=== PATIENT | female | born 1955 | race Caucasian/White ===

== ENCOUNTER 2018-02-22 09:31 | Inpatient (IN) | payer BC ==
[~2018-02-22] VITALS: Ht 160 cm; Wt 99.5 kg
[2018-02-27] MEDS ORDERED: COREG 25MG25 MG/TAB PO (09:47)
[2018-02-27] MEDS ORDERED: CALTRATE 600 +1 TAB PO (09:47)
[2018-02-27] MEDS ORDERED: ALDACTONE50 MG PO (09:48)
[2018-02-27] MEDS ORDERED: ENTRESTO 24 MG1 EACH PO (09:48)
[2018-02-27] MEDS ORDERED: IRON 27 MG PO (09:49)
[2018-02-27 09:50] VITALS: BP 107/64; PULSE 73; TEMP 97.9
[2018-02-27 10:32] LABS: BASO % 0.7 % (0.0-2.0); EOS # 0.4 (0.0-0.7); EOS % 6.5 % (0-4.0); GRAN # 3.5 (1.4-6.5); GRAN % 57.9 % (42.2-75.2); LYMPH # 1.7 (1.2-3.4); MEAN CELL VOLUME 96 fl (80.0-100.0); MEAN CORPUSCULAR HEMOGLOBIN 30 pg (27.0-31.0); MEAN CORPUSCULAR HGB CONC 32 g/dl (33.0-37.0); MEAN PLATELET VOLUME 9.9 fl (7.4-10.4); MONO # 0.4 (0.1-0.6); MONO % 6.7 % (1.7-9.3); PLATELET COUNT 259 K/mm3 (130-400); RED BLOOD COUNT 3.63 M/mm3 (4.10-5.30); REDCELL DISTRIBUTION WIDTH-CV 13.6 % (11.5-14.5)
[2018-02-27 10:35] LABS: PROTHROMBIN TIME 11.5 SECONDS (9.7-12.8)
[2018-02-27 10:39] LABS: HEMATOCRIT 34.8 % (37.0-47.0)
[2018-02-27 10:44] LABS: BILIRUBIN,TOTAL 0.3 mg/dL (0.0-1.0); CALCIUM 10.3 mg/dL (8.4-10.2); CREATININE, serum 0.92 mg/dL (0.52-1.25); MAGNESIUM 1.7 mg/dL (1.6-2.3); POTASSIUM 4.4 mmol/L (3.4-5.0); TOTAL PROTEIN 6.7 gm/dL (6.4-8.2)
[2018-02-27 16:55] VITALS: BP 102/60; PULSE 43; TEMP 997.4
[2018-02-27 23:23] VITALS: BP 136/72; PULSE 101; TEMP 97.6
[2018-02-28 04:49] VITALS: BP 100/55; PULSE 74; TEMP 98.4
[2018-02-28 07:05] VITALS: BP 94/61; PULSE 66; TEMP 98.8
[2018-02-28 08:20] LABS: BASO % 0.6 % (0.0-2.0); EOS # 0.4 (0.0-0.7); EOS % 5.2 % (0-4.0); GRAN % 55.2 % (42.2-75.2); HEMOGLOBIN 10.8 g/dl (12.5-16.0); LYMPH # 2.3 (1.2-3.4); MEAN CELL VOLUME 96 fl (80.0-100.0); MEAN CORPUSCULAR HEMOGLOBIN 30 pg (27.0-31.0); MEAN CORPUSCULAR HGB CONC 32 g/dl (33.0-37.0); MEAN PLATELET VOLUME 10.3 fl (7.4-10.4); MONO # 0.6 (0.1-0.6); MONO % 7.7 % (1.7-9.3); PLATELET COUNT 268 K/mm3 (130-400); RED BLOOD COUNT 3.55 M/mm3 (4.10-5.30); REDCELL DISTRIBUTION WIDTH-CV 13.5 % (11.5-14.5)
[2018-02-28 08:22] LABS: HEMATOCRIT 33.9 % (37.0-47.0)
[2018-02-28 08:28] LABS: CALCIUM 9.6 mg/dL (8.4-10.2); CREATININE, serum 0.95 mg/dL (0.52-1.25); MAGNESIUM 1.7 mg/dL (1.6-2.3); POTASSIUM 4.4 mmol/L (3.4-5.0)
[2018-02-28 12:25] VITALS: BP 90/55; PULSE 65; TEMP 98.1
[2018-02-28 15:46] VITALS: BP 89/48; BP 95/57; PULSE 66; TEMP 98.8
[2018-02-28 18:55] VITALS: BP 1025/58; BP 125/58; PULSE 86; TEMP 97.9
[2018-02-28 23:48] VITALS: BP 97/58; PULSE 80; TEMP 97.7
[2018-03-01 03:33] VITALS: BP 97/60; PULSE 81; TEMP 97.7
[2018-03-01 06:26] LABS: BASO % 0.5 % (0.0-2.0); EOS # 0.3 (0.0-0.7); EOS % 3.5 % (0-4.0); GRAN # 4.3 (1.4-6.5); GRAN % 54.7 % (42.2-75.2); LYMPH # 2.4 (1.2-3.4); LYMPH % 30.6 % (20.0-51.0); MEAN CELL VOLUME 94 fl (80.0-100.0); MEAN CORPUSCULAR HEMOGLOBIN 30 pg (27.0-31.0); MEAN CORPUSCULAR HGB CONC 32 g/dl (33.0-37.0); MEAN PLATELET VOLUME 10.3 fl (7.4-10.4); MONO # 0.8 (0.1-0.6); MONO % 10.4 % (1.7-9.3); PLATELET COUNT 254 K/mm3 (130-400); RED BLOOD COUNT 3.68 M/mm3 (4.10-5.30); REDCELL DISTRIBUTION WIDTH-CV 13.3 % (11.5-14.5)
[2018-03-01 06:27] LABS: HEMATOCRIT 34.6 % (37.0-47.0)
[2018-03-01 06:37] LABS: CALCIUM 9.8 mg/dL (8.4-10.2); CREATININE, serum 0.95 mg/dL (0.52-1.25); MAGNESIUM 1.6 mg/dL (1.6-2.3); POTASSIUM 4.3 mmol/L (3.4-5.0)
[2018-03-01 07:12] VITALS: BP 103/59; PULSE 70; TEMP 98.1
[2018-03-01] MEDS ORDERED: BETAPACE 80MG80 MG PO (10:11)
== END 2018-03-01 11:39 | disposition home or self-care (01) | DRG 309 ==
LOC: MEDICAL 02-27 08:58
PROVIDERS: Internal Medicine Cardiovascular Disease
DX: I47.2 Ventricular tachycardia (principal); I50.22 Chronic systolic (congestive) heart failure; I42.9 Cardiomyopathy, unspecified; I48.91 Unspecified atrial fibrillation; Z95.810 Presence of automatic (implantable) cardiac defibrillator; D64.9 Anemia, unspecified

== ENCOUNTER 2019-01-23 18:40 | Emergency (ER) | payer BC ==
[~2019-01-23] VITALS: Ht 160 cm; Wt 103.2 kg
[~2019-01-23 18:40] MED LIST changes: -CRUTCHES MC; -NORCO 325 MG-51 TAB PO; -TYLENOL 500MG500 MG PO; -WALKER MC
[2019-01-23 18:50] VITALS: TEMP 97.6
[2019-01-23] MEDS ORDERED: TYLENOL 500MG500 MG PO (19:08)
[2019-01-23 21:51] LABS: BASO % 0.4 % (0.0-2.0); EOS # 0.4 (0.0-0.7); EOS % 4.3 % (0-4.0); GRAN # 7.2 (1.4-6.5); GRAN % 69.8 % (42.2-75.2); HEMOGLOBIN 10.9 g/dl (12.5-16.0); LYMPH % 19.6 % (20.0-51.0); MEAN CELL VOLUME 98 fl (80.0-100.0); MEAN CORPUSCULAR HEMOGLOBIN 32 pg (27.0-31.0); MEAN CORPUSCULAR HGB CONC 32 g/dl (33.0-37.0); MEAN PLATELET VOLUME 10.2 fl (7.4-10.4); MONO # 0.6 (0.1-0.6); MONO % 5.4 % (1.7-9.3); PLATELET COUNT 298 K/mm3 (130-400); RED BLOOD COUNT 3.45 M/mm3 (4.10-5.30); REDCELL DISTRIBUTION WIDTH-CV 14.9 % (11.5-14.5)
[2019-01-23 21:54] LABS: HEMATOCRIT 33.7 % (37.0-47.0)
[2019-01-23 22:05] LABS: ALBUMIN 4.3 gm/dL (3.5-5.0); BILIRUBIN,TOTAL 0.3 mg/dL (0.0-1.0); CREATININE, serum 1.23 (0.52-1.25); TOTAL PROTEIN 7.3 gm/dL (6.4-8.2)
[2019-01-23 22:23] LABS: TROPONIN-I 0.014 ng/mL (0.000-0.035)
[2019-01-23] MEDS ORDERED: NORCO 325 MG-51 TAB PO (22:47)
[2019-01-23] MEDS ORDERED: CRUTCHES MC ×2 (22:50)
[2019-01-23] MEDS ORDERED: WALKER MC (22:57)
[2019-01-23 23:04] VITALS: BP 101/63; PULSE 81
== END 2019-01-23 23:04 | disposition home or self-care (01) ==
LOC: COL.ER 18:40
PROVIDERS: Emergency Medicine
DX: S72.114A Nondisplaced fracture of greater trochanter of right femur, initial encounter for closed fracture (principal); I50.9 Heart failure, unspecified; W19.XXXA Unspecified fall, initial encounter; Y92.009 Unspecified place in unspecified non-institutional (private) residence as the place of occurrence of the external cause

== ENCOUNTER → 2019-01-23 | Outpatient (CLI) | payer BC ==
[~2019-01-23] MED LIST: ALDACTONE50 MG PO; BETAPACE 80MG80 MG PO; CALTRATE 600 +1 TAB PO; COREG 25MG25 MG/TAB PO; CRUTCHES MC; ENTRESTO 24 MG1 EACH PO; IRON 27 MG PO; NORCO 325 MG-51 TAB PO; TYLENOL 500MG500 MG PO; WALKER MC
== END ==
LOC: MC.RAD 14:38
DX: N63.21 Unspecified lump in the left breast, upper outer quadrant (principal)
CPT/HCPCS: G0279

== ENCOUNTER → 2019-02-04 | Outpatient (CLI) | payer BC ==
[~2019-02-04] MED LIST changes: +CRUTCHES MC; +NORCO 325 MG-51 TAB PO; +TYLENOL 500MG500 MG PO; +WALKER MC
== END ==
LOC: MC.RAD 10:00
DX: N63.20 Unspecified lump in the left breast, unspecified quadrant (principal)

== ENCOUNTER → 2019-02-28 | Outpatient (CLI) | payer BC ==
[2019-02-28] VITALS (17 sets, daily range): BP systolic 83–1107; BP diastolic 46–79; PULSE 62–76
[~2019-02-28] VITALS: Ht 160 cm; Wt 103.1 kg
[~2019-02-28] MED LIST changes: +ENTRESTO 49 MG1 EACH PO
== END ==
LOC: COL.RAD 13:00
DX: C50.412 Malignant neoplasm of upper-outer quadrant of left female breast (principal); C79.51 Secondary malignant neoplasm of bone
CPT/HCPCS: J2250; J3010

== ENCOUNTER 2019-04-01 06:57 | Day surgery (SDC) | payer BC ==
[~2019-04-01] VITALS: Ht 160 cm; Wt 102.0 kg
[2019-04-01 07:24] VITALS: BP 95/60; PULSE 69; TEMP 97.4
[2019-04-01] MEDS ORDERED: NORCO 325 MG-51 TAB PO (10:13)
[2019-04-01 10:17] VITALS: BP 101/78; PULSE 82; TEMP 96.8
--- NOTE | 2019-04-01 10:17 | NUR ---
Patient arrives to [facility] [place] [facility] post-procedure for recovery. She is in the bed, accompanied by ADAMS Rosario and RN Irma Oleary. Bedside report is received. She is lying in bed, alert and oriented. She complains that she is cold. Monitoring applied - VSS on room air. Temporal temp reads 96.8 - given warm blankets to her comfort. She denies any pain or nausea. She has a tegaderm covering her incision on the right chest and the accessed [id number]. The port is to remain accessed for lab draws today and chemotherapy tomorrow, per Dr. Vang. The tegaderm has a scant amount of bloody drainage on it close to the incision area. Call light in reach. Her is running any errand at this time.
[2019-04-01 10:30] VITALS: BP 96/50; PULSE 64; TEMP 97.5
--- NOTE | 2019-04-01 10:30 | NUR ---
Patient is sat up in bed. She is offered and receives a soda and a muffin to eat. She denies any pain, nausea, or need. Drainage on tegaderm remains unchanged.
[2019-04-01 10:45] VITALS: BP 106/63; PULSE 64
--- NOTE | 2019-04-01 10:45 | NUR ---
Patient is resting comfortably in her room. Her family arrives to take her home.
[2019-04-01 11:00] VITALS: BP 108/57; PULSE 68
--- NOTE | 2019-04-01 11:20 | NUR ---
Patient has met discharge criteria. Discharge instructions are discussed. She denies any questions and verbalizes understanding. PIV removed with catheter intact and hemostasis achieved. She changes to her clothing independently. Escorted to the exit via wheelchair by staff. Discharged to home with ride at 1120.
== END 2019-04-01 11:20 | disposition home or self-care (01) ==
LOC: SDCO 06:57
DX: C50.412 Malignant neoplasm of upper-outer quadrant of left female breast (principal); Z79.51 Long term (current) use of inhaled steroids; J30.1 Allergic rhinitis due to pollen; I50.9 Heart failure, unspecified; M81.0 Age-related osteoporosis without current pathological fracture; Z83.3 Family history of diabetes mellitus; Z71.1 Person with feared health complaint in whom no diagnosis is made; Z88.0 Allergy status to penicillin; Z80.9 Family history of malignant neoplasm, unspecified; Z82.49 Family history of ischemic heart disease and other diseases of the circulatory system
CPT/HCPCS: C1788; J0690; J1644; J2704; J7120

== ENCOUNTER 2019-05-13 05:34 | Day surgery (SDC) | payer BC ==
[~2019-05-13] VITALS: Ht 160 cm; Wt 96.9 kg
[2019-05-13 06:10] VITALS: BP 95/54; PULSE 74; TEMP 97.3
[2019-05-13] MEDS ORDERED: TYLENOL 500MG500 MG PO (06:17)
[2019-05-13] MEDS ORDERED: TUMS500 MG PO (06:18)
--- NOTE | 2019-05-13 06:20 | NUR ---
TO RM AT 0546- CALL LIGHT IN REACH DAUGHTER AT BEDSIDE
[2019-05-13 08:25] VITALS: BP 86/52; PULSE 78; TEMP 97.4
--- NOTE | 2019-05-13 08:25 | NUR ---
TO PER CART FROM OR. ALERT ORIENTED X 3, TALKING TO STAFF AND DAUGHTER. PORT ACCESSED FOR CHEMO TX IN AM. DRESSING OVER SITE WITHOUT DRAINAGE.
[2019-05-13 08:30] VITALS: BP 81/53; PULSE 73
[2019-05-13 08:45] VITALS: BP 99/61; PULSE 65
--- NOTE | 2019-05-13 08:45 | NUR ---
RECEIVED WATER AND MUFFIN
[2019-05-13 09:00] VITALS: BP 94/53; PULSE 56
--- NOTE | 2019-05-13 09:00 | NUR ---
ATE 50% OF MUFFIN AND STATED THAT IS ALL SHE CAN EAT. C/O BEING COLD AND RECEIVED WARM BLANKET.
--- NOTE | 2019-05-13 09:30 | NUR ---
RECEIVED DISCHARGE INSTRUCTIONS AND VERBALIZED UNDERSTANDING. DISCONTINUED IV AND INT- CATHETER INTACT DAUGHTER ASSISTING PATIENT DRESSED.
--- NOTE | 2019-05-13 09:52 | NUR ---
DISCHARGED PER WC BY NURSING STAFF TO PRIVATE CAR IN CARE OF DAUGHTER-PIOTR
== END 2019-05-13 09:55 | disposition home or self-care (01) ==
LOC: SDCO 05:34
DX: T82.599A Other mechanical complication of unspecified cardiac and vascular devices and implants, initial encounter (principal); I50.9 Heart failure, unspecified; M81.0 Age-related osteoporosis without current pathological fracture; C50.412 Malignant neoplasm of upper-outer quadrant of left female breast; Z79.51 Long term (current) use of inhaled steroids; Z88.0 Allergy status to penicillin; I42.9 Cardiomyopathy, unspecified
CPT/HCPCS: J2704; J3010; J7120

== ENCOUNTER 2019-06-10 16:36 | Inpatient (IN) | payer BC ==
[~2019-06-10] VITALS: Ht 160 cm; Wt 95.8 kg
[~2019-06-10 16:36] MED LIST changes: +TUMS500 MG PO
[2019-06-10 17:24] LABS: GRAN # 2.2 (1.4-6.5); GRAN % 52.9 % (42.2-75.2); LYMPH # 1.6 (1.2-3.4); LYMPH % 38.2 % (20.0-51.0); MEAN CELL VOLUME 99 fl (80.0-100.0); MEAN CORPUSCULAR HGB CONC 33 g/dl (33.0-37.0); MEAN PLATELET VOLUME 10.2 fl (7.4-10.4); MONO # 0.3 (0.1-0.6); MONO % 6.4 % (1.7-9.3); PLATELET COUNT 319 K/mm3 (130-400); RED BLOOD COUNT 2.99 M/mm3 (4.10-5.30); REDCELL DISTRIBUTION WIDTH-CV 17.2 % (11.5-14.5)
[2019-06-10 17:25] LABS: HEMATOCRIT 29.5 % (37.0-47.0); HEMOGLOBIN 9.6 g/dl (12.5-16.0); MEAN CORPUSCULAR HEMOGLOBIN 32 pg (27.0-31.0)
[2019-06-10 17:36] LABS: ALANINE AMINOTRANSFERASE 10 U/L (4-34); ALBUMIN 4.2 gm/dL (3.5-5.0); ALKALINE PHOSPHATASE 102 U/L (50-136); ANION GAP 10 mmol/L (7-16); AST,SGOT 25 U/L (15-37); BILIRUBIN,TOTAL 0.4 mg/dL (0.0-1.0); BLOOD UREA NITROGEN 63 mg/dL (7-17); CALCIUM 9.1 mg/dL (8.4-10.2); CARBON DIOXIDE 15 mmol/L (22-30); CHLORIDE 109 mmol/L (98-107); CREATININE, serum 4.38 (0.52-1.25); GLUCOSE 95 mg/dL (74-106); POTASSIUM 4.2 mmol/L (3.4-5.0); SODIUM 135 mmol/L (137-145); TOTAL PROTEIN 6.8 gm/dL (6.4-8.2)
[2019-06-10 17:52] LABS: C-REACTIVE PROTEIN < 0.5 mg/dL (0.0-0.9)
[2019-06-10 19:23] LABS: MAGNESIUM 1.5 mg/dL (1.6-2.3); PHOSPHOROUS 4.4 mg/dL (2.5-4.5)
[2019-06-10 19:57] VITALS: BP 104/56; PULSE 68; TEMP 98.1
[2019-06-10 20:44] LABS: COLLECTION METHOD CLEAN CATCH
[2019-06-10 20:55] LABS: PH 5 (5-8); SQUAMOUS EPITHELIAL 0-2 /hpf; URINE APPEARANCE Hazy; URINE BACTERIA Occasional /hpf; URINE BILIRUBIN Negative (NEGATIVE); URINE BLOOD 1+ (NEGATIVE); URINE COLOR Yellow; URINE GLUCOSE Negative (NEGATIVE); URINE KETONE Negative (NEGATIVE); URINE LEUKOCYTE ESTERASE 2+ (NEGATIVE); URINE NITRATE Negative (NEGATIVE); URINE PROTEIN(semi-quant) 1+ (NEGATIVE); URINE UROBILINOGEN Negative (NEGATIVE)
[2019-06-11] VITALS (16 sets, daily range): BP systolic 71–99; BP diastolic 35–55; PULSE 52–72; TEMP 97–98.1
--- NOTE | 2019-06-11 02:42 | NUR ---
Patient to the floor via bed. UA obtained and sent to lab. IVF started. Magnesium replaced per orders. Patient denies pain. States nausea is a lot better since getting fluids in ED. Port to right upper chest accessed. Stand-by assist to bathroom. Remains hypotensive. Melia Nielsen APRN, aware and ordered hourly vitals checks. Patient states she is feeling much better and her dizziness has passed. Ambulates with steady gait. Heparin for VTE. 5 page completed. Med rec completed. Will continue to monitor patient.
[2019-06-11 06:54] LABS: BASO % 0.3 % (0.0-2.0); GRAN # 2.4 (1.4-6.5); GRAN % 62.5 % (42.2-75.2); LYMPH # 1.3 (1.2-3.4); LYMPH % 33.2 % (20.0-51.0); MEAN CELL VOLUME 101 fl (80.0-100.0); MEAN CORPUSCULAR HGB CONC 33 g/dl (33.0-37.0); MEAN PLATELET VOLUME 10.2 fl (7.4-10.4); MONO # 0.1 (0.1-0.6); MONO % 3.5 % (1.7-9.3); PLATELET COUNT 261 K/mm3 (130-400); RED BLOOD COUNT 2.64 M/mm3 (4.10-5.30); REDCELL DISTRIBUTION WIDTH-CV 17.2 % (11.5-14.5)
[2019-06-11 07:09] LABS: ALBUMIN 3.6 gm/dL (3.5-5.0); BILIRUBIN,TOTAL 0.3 mg/dL (0.0-1.0); CREATININE, serum 2.86 (0.52-1.25); MAGNESIUM 1.8 mg/dL (1.6-2.3); POTASSIUM 4.2 mmol/L (3.4-5.0)
[2019-06-11 07:23] LABS: HEMATOCRIT 26.6 % (37.0-47.0); HEMOGLOBIN 8.8 g/dl (12.5-16.0); MEAN CORPUSCULAR HEMOGLOBIN 33 pg (27.0-31.0)
--- NOTE | 2019-06-11 15:44 | NUR ---
TREVIN met with the patient to complete initial intake. The patient lives in [place] with her , Axel. The patient denies DME usage and is independent with ADLs. The patient's PCP is Dr. Salamanca and patient receives medications from [facility]. The patient does not have advanced directives in the EMR but was interested in a DPOA-HC form. Form provided. The patient plans to return home at discharge with Axel providing transportation. Will continue to monitor.
--- NOTE | 2019-06-11 18:08 | NUR ---
Patient currently resting in bedside recliner eating dinner. Patient tolerated clear liquids well all shift, no reports of nausea and no episodes of emesis. Patient has denied pain today. Blood pressures remain low but stable. Patient denies needs at this time, call light within reach.
--- NOTE | 2019-06-11 23:46 | NUR ---
PATIENT SLEEPING, DOES NOT AWAKEN WHEN ROOM ENTERED BY STAFF. OBSERVED BREATHING NONLABORED AND EVEN. PATIENT CONTINUES ON TELE.
--- NOTE | 2019-06-12 00:30 | NUR ---
TELE CALLED, REPORTED OBSERVING HEART RATE TO 40'S WHILE PATIENT SLEEPS, SETTING OFF ALARMS, OBSERVED PATIENT SLEEPING WITH NONLABORED/EVEN BREATHING.
--- NOTE | 2019-06-12 02:41 | NUR ---
TELE CALLED, PATIENT HAS HEART DROP TO 40'S WITH SLEEP, DONG PATEL CALLED BY CHARGE NURSE, LILI, TO GET ORDER FOR TELE PARAMETERS CHANGE.
--- NOTE | 2019-06-12 02:53 | NUR ---
PATIENT SLEEPING, DOES NOT AWAKEN WHEN DOOR TO ROOM IS OPENED BY STAFF, BREATHING NONLABORED AND EVEN. TELE CONTINUES.
--- NOTE | 2019-06-12 03:10 | NUR ---
PER TELE, REPORTING ABNORMAL RHYTHM THAT IS STILL BEING "LOOKED AT".
[2019-06-12 03:14] VITALS: BP 84/56; PULSE 62; TEMP 97.5
--- NOTE | 2019-06-12 03:19 | NUR ---
SEE Kopjra FOR VS TAKEN, PATIENT AWAKENS EASILY WITH NO C/O INITIALLY OF CHEST PAIN OR SHORTNESS OF BREATH. DENIES ANY NEEDS OR CONCERNS.
--- NOTE | 2019-06-12 03:23 | NUR ---
CALLED, TELE, SPOKE WITH NAKUL/MAINSPRING WINDER AND OILER, DETERMINED ABN RHYTHM/WITH ICU CATEGORY SPECIALIST PATIENT HAD 2 SEPARATE BEATS OF P.A.T. WITH 1ST EPISODE OF 11 BEATS OF P.A.T. AND 2ND EPISODE OF 7 BEATS OF P.A.T. THAT CHANGED BACK TO PATIENT'S NORM RHYTHM IN THE 50'S. INFORMED TECH OF PATIENT'S VS TAKEN, WITH PATIENT DENYING CHEST PAIN/SHORTNESS OF BREATH.
[2019-06-12 06:40] LABS: BASO % 0.4 % (0.0-2.0); GRAN # 1.7 (1.4-6.5); GRAN % 35.3 % (42.2-75.2); LYMPH # 2.6 (1.2-3.4); LYMPH % 54.2 % (20.0-51.0); MEAN CELL VOLUME 100 fl (80.0-100.0); MEAN CORPUSCULAR HGB CONC 32 g/dl (33.0-37.0); MEAN PLATELET VOLUME 10.3 fl (7.4-10.4); MONO # 0.5 (0.1-0.6); MONO % 9.5 % (1.7-9.3); PLATELET COUNT 253 K/mm3 (130-400); RED BLOOD COUNT 2.57 M/mm3 (4.10-5.30); REDCELL DISTRIBUTION WIDTH-CV 17.5 % (11.5-14.5)
[2019-06-12 06:52] LABS: HEMATOCRIT 25.6 % (37.0-47.0); HEMOGLOBIN 8.2 g/dl (12.5-16.0); MEAN CORPUSCULAR HEMOGLOBIN 32 pg (27.0-31.0)
[2019-06-12 06:54] LABS: CREATININE, serum 1.7 (0.52-1.25); MAGNESIUM 1.7 mg/dL (1.6-2.3)
--- NOTE | 2019-06-12 07:20 | NUR ---
Patient resting in bed during change of shift report given to day shift nurseJanina and student nurse, Gama. Tele continues. Patient up in room independently.
[2019-06-12 08:28] VITALS: BP 102/55; PULSE 60; TEMP 97.6
--- NOTE | 2019-06-12 08:30 | NUR ---
PT A&O*3. VSS. HELD BETA ABEL DUE TO HEART RATE IN THE 50'S ON TELE. ALSO NOTED SOFT B/P. CONFIRMED HOLD WITH HOSPITALIST. PATIENT DENIES PAIN. ADMIT ON 06/09 SINCE REJI/HYPOTENSION. NO ABNORMAL FINDINGS ON HEAD TO ASSESSMENT. PT HAS CRUSTED LESION ON LEFT FOOT WITH NO DRESSING ON IT. PT EATING AND VOIDING INDEPENDENTLY. NO C/O N/V. ON IV ABX FOR UTI. PT HAS CENTRAL PORT ON RIGHT CHEST TO INT. PT IS SITTING ON CHAIR, CALL LIGHT WITHIN REACH.
--- NOTE | 2019-06-12 10:10 | NUR ---
HOSPITALIST CARE TEAM ROUNDING, SEE ORDERS.
[2019-06-12] MEDS ORDERED: PROTONIX 40MG T40 MG PO (10:16)
[2019-06-12] MEDS ORDERED: PACERONE400 MG PO (10:17)
--- NOTE | 2019-06-12 12:51 | NUR ---
First visit from the clinic business manager. No needs right now.
[2019-06-12 12:55] VITALS: BP 86/51; PULSE 53; TEMP 97.8
== END 2019-06-12 15:10 | disposition home or self-care (01) | DRG 683 ==
LOC: COL.ER 16:36 → SURG 18:12
PROVIDERS: Family Medicine; Nurse Practitioner Family; Physician Assistant; ADMIT Student in an Organized Health Care Education/Training Program
DX: N17.9 Acute kidney failure, unspecified (principal); I42.9 Cardiomyopathy, unspecified; I47.2 Ventricular tachycardia; C79.51 Secondary malignant neoplasm of bone; N39.0 Urinary tract infection, site not specified; C50.412 Malignant neoplasm of upper-outer quadrant of left female breast; I50.9 Heart failure, unspecified; I95.9 Hypotension, unspecified; Z66 Do not resuscitate; D64.9 Anemia, unspecified; K20.9 Esophagitis, unspecified; M81.0 Age-related osteoporosis without current pathological fracture; E83.42 Hypomagnesemia; R19.7 Diarrhea, unspecified; R53.81 Other malaise; E86.0 Dehydration; Z95.810 Presence of automatic (implantable) cardiac defibrillator; Z88.0 Allergy status to penicillin
CPT/HCPCS: 99223-AI; 99232-AI; 99239; A4216; C9113; J0696; J1644; J2405; J3475; J7030; J7120

== ENCOUNTER → 2019-09-04 | Outpatient (CLI) | payer BC ==
[~2019-09-04] MED LIST changes: +PACERONE400 MG PO; +PROTONIX 40MG T40 MG PO
== END ==
LOC: COL.RAD 09:51
DX: C50.412 Malignant neoplasm of upper-outer quadrant of left female breast (principal); C79.51 Secondary malignant neoplasm of bone; Z95.9 Presence of cardiac and vascular implant and graft, unspecified
CPT/HCPCS: A9503; Q9967

== ENCOUNTER → 2019-09-25 | Outpatient (CLI) | payer BC | LOC: COL.RAD 12:37 | DX: Q62.11 Congenital occlusion of ureteropelvic junction (principal) | CPT/HCPCS: A9562 ==

== ENCOUNTER 2019-10-31 07:40 | Day surgery (SDC) | payer BC ==
[~2019-10-31] VITALS: Ht 160 cm; Wt 88.6 kg
[2019-10-31] MEDS ORDERED: CORDARONE200 MG/TAB PO (08:02)
[2019-10-31] MEDS ORDERED: DEMADEX10 MG PO (08:05)
[2019-10-31] MEDS ORDERED: ZOFRAN8 MG PO (08:07)
[2019-10-31 09:00] VITALS: BP 83/53; PULSE 95; TEMP 98.2
[2019-10-31 11:14] VITALS: BP 90/52; PULSE 84; TEMP 97.3
--- NOTE | 2019-10-31 11:14 | NUR ---
Patient arrives back to SDC alert, denies nausea, reports slight cramping/discomfort feeling/urge to urinate. Patient monitor applied, vitals stable. Patient tolerating ice chips well. Daughter at bedside. Patient given crackers and soda.
[2019-10-31 11:30] VITALS: BP 87/47; PULSE 84
[2019-10-31 11:45] VITALS: BP 101/58; PULSE 85
--- NOTE | 2019-10-31 11:45 | NUR ---
Patient tolerates soda and crackers without any nausea. Reports bladder cramping, denies wanting any pain medication. Patient reports she is ready to go home. Vitals stable.
--- NOTE | 2019-10-31 12:00 | NUR ---
Dismissal instructions gone over with patient and patient's daughter. Both verbalize understanding and all questions answered.
--- NOTE | 2019-10-31 12:10 | NUR ---
Patient discharged to private vehicle at patient enterance via wheelchair without any complications. Patient and family leave thanking staff for services.
== END 2019-10-31 12:10 | disposition home or self-care (01) ==
LOC: SDCO 07:40
DX: N13.0 Hydronephrosis with ureteropelvic junction obstruction (principal); C50.919 Malignant neoplasm of unspecified site of unspecified female breast; C79.51 Secondary malignant neoplasm of bone; I50.9 Heart failure, unspecified; G89.29 Other chronic pain; F32.9 Major depressive disorder, single episode, unspecified; M81.0 Age-related osteoporosis without current pathological fracture; M19.90 Unspecified osteoarthritis, unspecified site; Z79.899 Other long term (current) drug therapy; Z88.0 Allergy status to penicillin; Z95.810 Presence of automatic (implantable) cardiac defibrillator; Z20.828 Contact with and (suspected) exposure to other viral communicable diseases
CPT/HCPCS: C1769; C2617; J0690; J1100; J2704; J3010; J7120; Q9967

== ENCOUNTER 2019-12-23 17:39 | Inpatient (IN) | payer BC, OTHER ==
[~2019-12-23] VITALS: Ht 160 cm; Wt 110.1 kg
[~2019-12-23 17:39] MED LIST changes: +ALDACTONE 25MG25 M1 PO; -ALDACTONE50 MG PO; +CORDARONE200 MG/TAB PO; +DEMADEX10 MG PO; +ZOFRAN8 MG PO
[2019-12-23 18:42] LABS: INR 1.1 (0.8-3.0); PROTHROMBIN TIME 11.8 SECONDS (9.7-12.8)
[2019-12-23 18:43] LABS: BASO % 0.8 % (0.0-2.0); EOS # 0.1 (0.0-0.7); EOS % 4.5 % (0-4.0); GRAN # 1.2 (1.4-6.5); GRAN % 50.7 % (42.2-75.2); LYMPH # 0.9 (1.2-3.4); MEAN CELL VOLUME 99 fl (80.0-100.0); MEAN CORPUSCULAR HGB CONC 33 g/dl (33.0-37.0); MEAN PLATELET VOLUME 9.5 fl (7.4-10.4); MONO # 0.2 (0.1-0.6); MONO % 6.6 % (1.7-9.3); PLATELET COUNT 340 K/mm3 (130-400); RED BLOOD COUNT 2.94 M/mm3 (4.10-5.30); REDCELL DISTRIBUTION WIDTH-CV 17.4 % (11.5-14.5)
[2019-12-23 18:44] LABS: HEMATOCRIT 29.1 % (37.0-47.0); HEMOGLOBIN 9.6 g/dl (12.5-16.0); MEAN CORPUSCULAR HEMOGLOBIN 33 pg (27.0-31.0)
[2019-12-23 18:45] LABS: ALANINE AMINOTRANSFERASE 12 U/L (4-34); ALBUMIN 4.3 gm/dL (3.5-5.0); ALKALINE PHOSPHATASE 113 U/L (50-136); ANION GAP 13 mmol/L (7-16); AST,SGOT 26 U/L (15-37); BILIRUBIN,TOTAL 0.5 mg/dL (0.0-1.0); BLOOD UREA NITROGEN 49 mg/dL (7-17); CALCIUM 9.3 mg/dL (8.4-10.2); CARBON DIOXIDE 17 mmol/L (22-30); CHLORIDE 104 mmol/L (98-107); CREATININE, serum 4.41 (0.52-1.25); GLUCOSE 84 mg/dL (74-106); POTASSIUM 3.9 mmol/L (3.4-5.0); SODIUM 134 mmol/L (137-145); TOTAL PROTEIN 6.8 gm/dL (6.4-8.2)
[2019-12-23 18:46] LABS: C-REACTIVE PROTEIN < 0.5 mg/dL (0.0-0.9)
[2019-12-23 18:54] LABS: TROPONIN-I 0.032 ng/mL (0.000-0.035)
[2019-12-23 21:58] VITALS: BP 86/58; PULSE 84; TEMP 97.4
--- NOTE | 2019-12-23 23:00 | NUR ---
Patient arrived to medical unit from ER at approximately 2130. Alert and oriented x 4, and able to make needs known. Reports pain all over, achy feeling. Peripheral INT to left AC. NS running at 125 ml/hr per orders. Has port to right chest, not accessed at this time. Unsure what size neele to use, talked to housekeeping assistant, and recommened to use peripheral for tonight and call MD office tomorrow to get size. Patient voiced understanding. Denies having SOB and dyspnea. LS CTA in upper lobes, diminished in lower. Respirations even and unlabored. HRR. Telemetry in place. Capillary refill less htan 3 seconds. Non-tenting skin turgor. BSAx4. Abdomen soft and non-tender. No edema. Bladder scanned with a result of approximately 75 ml. Patient states that she always feels like she has to pee, but only dribbles small amounts. Indwelling wylie catheter placed per orders. 100 ml cloudy yellow urine, sent UA to lab. Patient systolic BP continues to be in the 80s, which patient reports is her usual. Denies dizziness. Voices no questions, needs, or concerns at this time. Resting in bed with call light within reach.
[2019-12-23 23:11] LABS: COLLECTION METHOD CLEAN CATCH
[2019-12-23 23:32] LABS: AMORPHOUS CRYSTAL Present /uL; PH 5 (5-8); SQUAMOUS EPITHELIAL None Seen /hpf; URINE APPEARANCE Cloudy; URINE BACTERIA Rare /hpf; URINE BILIRUBIN Negative (NEGATIVE); URINE BLOOD 3+ (NEGATIVE); URINE COLOR Yellow; URINE GLUCOSE Negative (NEGATIVE); URINE KETONE Negative (NEGATIVE); URINE LEUKOCYTE ESTERASE 1+ (NEGATIVE); URINE NITRATE Negative (NEGATIVE); URINE PROTEIN(semi-quant) 2+ (NEGATIVE); URINE RBC 20-50 /hpf; URINE UROBILINOGEN Negative (NEGATIVE)
[2019-12-24] VITALS (251 sets, daily range): BP systolic 67–109; BP diastolic 41–71; PULSE 59–75; TEMP 97.8–98.1; O2SAT 65–100
--- NOTE | 2019-12-24 00:27 | NUR ---
Patient's BP 78/41. Recheck 71/36. Notified KATIE Melton. Patient asymptomatic. Increased fluids to 150 ml/hr.
--- NOTE | 2019-12-24 05:11 | NUR ---
Patient continues to receive IV fluids per orders, and have cloudy yellow urine via dependent drainage. Voices no questions, needs, or concerns at this time. Resting in bed with call light within reach.
--- NOTE | 2019-12-24 08:41 | NUR ---
PT PLEASANT, AOX4, DENIES PAIN/NAUSEA AT THIS TIME. DR. GROSSMAN'S OFFICE REPORTS 1 1/4INCH NEEDLE FOR PORT ACCESS. FLU SHOT GIVEN WITH OTHER MEDICATIONS, PT ATE 1 SAUSAGE LINK AND HER MANDARIN ORANGES. ASSESSMENT PERFORMED, BP LOW CONSISTENT THROUGHOUT NIGHT, PT ASYMPTOMATIC, NO OTHER NEEDS.
[2019-12-24 08:52] LABS: MEAN CELL VOLUME 101 fl (80.0-100.0); MEAN CORPUSCULAR HGB CONC 33 g/dl (33.0-37.0); MEAN PLATELET VOLUME 9.7 fl (7.4-10.4); PLATELET COUNT 254 K/mm3 (130-400); RED BLOOD COUNT 2.62 M/mm3 (4.10-5.30); REDCELL DISTRIBUTION WIDTH-CV 17.7 % (11.5-14.5)
[2019-12-24 08:58] LABS: HEMATOCRIT 26.4 % (37.0-47.0); HEMOGLOBIN 8.7 g/dl (12.5-16.0); MEAN CORPUSCULAR HEMOGLOBIN 33 pg (27.0-31.0)
[2019-12-24 09:04] LABS: CALCIUM 8.5 mg/dL (8.4-10.2); CREATININE, serum 3.13 (0.52-1.25); POTASSIUM 3.7 mmol/L (3.4-5.0)
[2019-12-24 09:42] LABS: BASOPHIL 2 % (0-2); EOSINOPHIL 5 % (0-4); LYMPHOCYTE 55 % (20.0-51.0); NEUTROPHILS 34 % (42.0-75.2); PLATELET ESTIMATE NORMAL (NORMAL)
--- NOTE | 2019-12-24 10:45 | NUR ---
PT HAD LOW BP WITH THERAPY OF 67/40, NOTIFIED PHYSICIAN, ORDERED 500ML BOLUS
--- NOTE | 2019-12-24 11:28 | NUR ---
AFTER BOLUS PT BP CAME UP TO 81/53
--- NOTE | 2019-12-24 11:54 | NUR ---
NOTIFIED KATIE NICHOLS OF AYSPTOMATIC LOW BP.
--- NOTE | 2019-12-24 12:27 | NUR ---
PT BP DROPPING BACK DOWN, NOTIFIED MIS.
--- NOTE | 2019-12-24 13:19 | NUR ---
Rt chest port accessed with 1 1/2" oakley needle. + blood return and IV fluids switched to port access. Pt tolerated well.
--- NOTE | 2019-12-24 13:39 | NUR ---
Women'S Swim Coach met with the patient to complete initial intake. The patient lives in [place] with her , Arnoldo. The patient has a rollator walker and is independent with ADLs. The patient's PCP is Dr. Salamanca and patient receives medications from [facility] pharmacy with no difficulties. The patient does not have advanced and was not interested in DPOA-HC form. The patient plans to return home at discharge. The patient's Oncologist is Dr. Bui. The patient receives chemo; treatment is two weeks on () and one week off. SW contacted the patient's , Arnoldo #[phone] to introduce oneself and to provide update. He had no questions at this time. PT/OT ordered. The patient has transfer orders to the ICU.
--- NOTE | 2019-12-24 14:15 | NUR ---
PT TAKEN DOWN TO ICU VIA BED.
--- NOTE | 2019-12-24 14:20 | NUR ---
Received report from ADRIANE COLLADO. Patient transferred from unit via bed. Patient oriented to room. Will continue to monitor for hypotension. Patient ICU status.
--- NOTE | 2019-12-24 19:30 | NUR ---
RECEIVED PT WITH LEVOPHED INFUSING AT 0.1 MCG/KG/MIN OR AT 32.7 ML/HR THROUGH HER RIGH CHEST PORT.
[2019-12-25] VITALS (419 sets, daily range): BP systolic 84–112; BP diastolic 49–63; PULSE 64–87; TEMP 97.7–98.6; O2SAT 72–100
[2019-12-25 04:36] LABS: HEMATOCRIT 25.4 % (37.0-47.0); HEMOGLOBIN 8.2 g/dl (12.5-16.0); MEAN CELL VOLUME 101 fl (80.0-100.0); MEAN CORPUSCULAR HEMOGLOBIN 33 pg (27.0-31.0); MEAN CORPUSCULAR HGB CONC 32 g/dl (33.0-37.0); MEAN PLATELET VOLUME 9.2 fl (7.4-10.4); PLATELET COUNT 270 K/mm3 (130-400); RED BLOOD COUNT 2.52 M/mm3 (4.10-5.30); REDCELL DISTRIBUTION WIDTH-CV 17.7 % (11.5-14.5)
[2019-12-25 04:45] LABS: CALCIUM 8.1 mg/dL (8.4-10.2); CREATININE, serum 1.89 (0.52-1.25); POTASSIUM 3.5 mmol/L (3.4-5.0)
--- NOTE | 2019-12-25 07:10 | NUR ---
RECEIVED REPORT FROM ADRIANE HUIZAR. PT SITTING UP IN BED. BREAKFAST GIVEN. FC PATENT AND DRAINING TO GRAVTY. PT ON RA. CALL LIGHT WITHN REACH. VSS.
--- NOTE | 2019-12-25 07:18 | NUR ---
REPORT GIVEN TO ADRIANE HINTON.
--- NOTE | 2019-12-25 09:16 | NUR ---
DR ALFARO AT BEDSIDE DISCUSSING POC WITH PT AND ASSESSMENT. PHYSICIAN DISCUSSES NORMAL BP WITH PT, PPT STATES SHARON SBP IS 80-95. PHYSICIAN OK TO TITRATE LEVOPHED DOWN ACCORDING TO THAT SBP. WILL MONITOR CLOSELY.
--- NOTE | 2019-12-25 09:27 | NUR ---
Paint Mixer Machine attended clinical rounds with the team. Palliative consult ordered and SW will continue to follow.
--- NOTE | 2019-12-25 09:30 | NUR ---
PT BUMPED RT HAND MILLIE BEDSIDE TABLE AND CREATED A SKIN TEAR. CLEANED UP, XEROFORM PLACED AND GAUZE WRAP ON. PT STATES SHE GETS THEM EASILY AND BLEEDS EASIL USUALLY. WILL WATCH CLOSELY FOR BLEEDING.
--- NOTE | 2019-12-25 10:53 | NUR ---
First visit from the sulfate drier machine operator. No needs right now.
--- NOTE | 2019-12-25 11:18 | NUR ---
Bilingual Administrative Assistant met with patient to discuss PT/OT recommendation for Home Health Services. Patient states she doesn't feel she would need care home, but may be interested in PT/OT as she's been feeling weak. Patient would like time to think about it. SW provided Medicare.gov list of agencies to review and will follow up.
[2019-12-26] VITALS (686 sets, daily range): BP systolic 72–125; BP diastolic 39–87; PULSE 86–114; TEMP 97.5–98.5; O2SAT 38–100
[2019-12-26 06:19] LABS: BASO % 0.4 % (0.0-2.0); EOS # 0.1 (0.0-0.7); EOS % 2.6 % (0-4.0); GRAN # 1.7 (1.4-6.5); GRAN % 74.1 % (42.2-75.2); LYMPH # 0.4 (1.2-3.4); LYMPH % 18.5 % (20.0-51.0); MEAN CELL VOLUME 102 fl (80.0-100.0); MEAN CORPUSCULAR HGB CONC 32 g/dl (33.0-37.0); MEAN PLATELET VOLUME 9.5 fl (7.4-10.4); MONO # 0.1 (0.1-0.6); MONO % 4.4 % (1.7-9.3); PLATELET COUNT 241 K/mm3 (130-400); RED BLOOD COUNT 2.67 M/mm3 (4.10-5.30); REDCELL DISTRIBUTION WIDTH-CV 18.3 % (11.5-14.5)
[2019-12-26 06:25] LABS: HEMATOCRIT 27.2 % (37.0-47.0); HEMOGLOBIN 8.8 g/dl (12.5-16.0); MEAN CORPUSCULAR HEMOGLOBIN 33 pg (27.0-31.0)
[2019-12-26 06:26] LABS: CALCIUM 8.1 mg/dL (8.4-10.2); CREATININE, serum 1.31 (0.52-1.25); POTASSIUM 3.7 mmol/L (3.4-5.0)
[2019-12-26 10:16] LABS: C-REACTIVE PROTEIN 2.9 mg/dL (0.0-0.9)
[2019-12-26 10:44] LABS: TSH w REFLEX 0.322 uIU/mL (0.465-4.680)
--- NOTE | 2019-12-26 14:33 | NUR ---
I met with pt while she was sitting up in [facility]. She has been having nausea and vomitting for the last two weeks partially because of food not "tasting right" Chemotherapy has caused altered taste sensations before. We used a peppermint to try to get rid of that taste as she had just vomitted her smoothie because it tasted horrible. Pt has been having diarrhea for several years due to some of her cardiac meds she thinks. "Of all the problems, that one is the least troublesome." Her daughter and her son in law are very supportive as is her at home. She has two grandchildren that she does get to see and friends that call daily. She is currently on her third chemotherapy regime. She started with ABRAXANE for about 5 months but then developed peripheral neuropathy that led to changing chemotherapy and just recently started her current chemotherapy to which she attributes the N/V. At this point she states "I am about ready to give up but I really want to know if there are other options for chemotherapy and what kind of life that I am looking at now". Her has a hard time seeing needles and coming to the hospital makes him very uncomfortable. She says they haven't talked about the future may hold because it is too hard for him to do. Her N/V had improved but is back now. She feels that she can manage pretty well at home, single level, with grab bars already in place. I just feel weak--this is not the way I want to live my life." We discussed that it is her choice regarding continuing treatment vs other options like hospice. She will give it some thought over the weekend and we will talk again on Sunday. I did place a call to Dr Bui about other chemotherapy choices, life expectancy, anticipated side effects from disease and treatment and I am waiting for a response. Bone pain is one of her biggest issues in addition to the N/V. I did speak with Dr Lawton about this consult and pt's desire for information about ongoing prognosis/treatment.
--- NOTE | 2019-12-26 15:28 | NUR ---
Plate Shear Operator received a phone call from patient's , Arnoldo. TREVIN and Arnoldo discussed Home Health services and Arnoldo expressed he may be interested in this for patient but will follow up with her. Arnoldo inquired about additional insurance coverage if patient would qualify. TREVIN consulted Brenda, Financial Counselor.
--- NOTE | 2019-12-26 16:08 | NUR ---
Dr Bui did call me back and advise that he will do more research on Carey's treatment program with regard to her ongoing nausea/vomitting and taste variations which seem to get better and then worse. He did report that her tumor markers are trending down. He will plan on talking with her on Sunday and will discuss side effect management as well as other options for treatment that might be available to her. I did talk with the patient about this and she was agreeable.
[2019-12-27] VITALS (741 sets, daily range): BP systolic 84–110; BP diastolic 32–78; PULSE 94–109; TEMP 98.6–100; O2SAT 69–100
[2019-12-27 05:23] LABS: MEAN CELL VOLUME 99 fl (80.0-100.0); MEAN CORPUSCULAR HGB CONC 32 g/dl (33.0-37.0); MEAN PLATELET VOLUME 9.4 fl (7.4-10.4); PLATELET COUNT 181 K/mm3 (130-400); RED BLOOD COUNT 2.61 M/mm3 (4.10-5.30); REDCELL DISTRIBUTION WIDTH-CV 18.3 % (11.5-14.5)
[2019-12-27 05:32] LABS: CALCIUM 7.3 mg/dL (8.4-10.2); CREATININE, serum 1.63 (0.52-1.25); POTASSIUM 3.5 mmol/L (3.4-5.0)
[2019-12-27 05:35] LABS: HEMATOCRIT 25.9 % (37.0-47.0); HEMOGLOBIN 8.4 g/dl (12.5-16.0); MEAN CORPUSCULAR HEMOGLOBIN 32 pg (27.0-31.0)
[2019-12-27 05:55] LABS: BAND 24 % (0-10); LYMPHOCYTE 13 % (20.0-51.0); METAMYELOCYTE 3 % (0-0); NEUTROPHILS 35 % (42.0-75.2); NUCLEATED RED BLOOD CELL 1 (0-6); PLATELET ESTIMATE NORMAL (NORMAL)
[2019-12-27 05:56] LABS: ANISOCYTOSIS 2+
[2019-12-27 05:57] LABS: HYPOCHROMIA 1+
--- NOTE | 2019-12-27 09:19 | NUR ---
PT HAVING NAUSEA AND DRY HEAVES. HR UP TO 140'S DURING. NOTIFIED AND ORDER RECEVED FOR ONE TIME IV MAXINE.
[2019-12-27 12:05] LABS: ALBUMIN 2.4 gm/dL (3.5-5.0); BILIRUBIN UNCONJUGATED 0.3 mg/dL (0.0-1.1); BILIRUBIN,DIRECT 0.1 mg/dL (0.0-0.4); BILIRUBIN,TOTAL 0.4 mg/dL (0.0-1.0); TOTAL PROTEIN 4.4 gm/dL (6.4-8.2)
[2019-12-27 12:20] LABS: COLLECTION METHOD CLEAN CATCH
[2019-12-27 12:32] LABS: PH 5 (5-8); URINE APPEARANCE Turbid; URINE BACTERIA Rare /hpf; URINE BILIRUBIN Negative (NEGATIVE); URINE BLOOD 1+ (NEGATIVE); URINE COLOR Amber; URINE GLUCOSE Negative (NEGATIVE); URINE KETONE Negative (NEGATIVE); URINE LEUKOCYTE ESTERASE 3+ (NEGATIVE); URINE NITRATE Negative (NEGATIVE); URINE PROTEIN(semi-quant) 2+ (NEGATIVE); URINE UROBILINOGEN Negative (NEGATIVE); URINE WBC >50 /hpf
--- NOTE | 2019-12-27 17:28 | NUR ---
PT TAKEN TO CT. WHEN MOVING BACK TO BED FROM CT PT'S PORT WAS PULLED. PORT ABLE TO FLUSH BUT NO BLOOD RETURN. PORT DE-ACCESSED AND RE-ACCESSED BY FLAKE MILLER WHEAT AND OATS.
[2019-12-28] VITALS (802 sets, daily range): BP systolic 86–130; BP diastolic 51–76; PULSE 91–109; TEMP 97.8–98.6; O2SAT 69–100
--- NOTE | 2019-12-28 02:18 | NUR ---
Notified Melia of patient's blood culture results. Awaiting further orders. Will continue to monitor.
[2019-12-28 04:52] LABS: MEAN CELL VOLUME 101 fl (80.0-100.0); MEAN CORPUSCULAR HGB CONC 33 g/dl (33.0-37.0); PLATELET COUNT 105 K/mm3 (130-400); RED BLOOD COUNT 2.22 M/mm3 (4.10-5.30); REDCELL DISTRIBUTION WIDTH-CV 18.3 % (11.5-14.5)
[2019-12-28 04:56] LABS: HEMATOCRIT 22.3 % (37.0-47.0); HEMOGLOBIN 7.4 g/dl (12.5-16.0); MEAN CORPUSCULAR HEMOGLOBIN 33 pg (27.0-31.0)
[2019-12-28 05:02] LABS: CALCIUM 7.1 mg/dL (8.4-10.2); CREATININE, serum 2.29 (0.52-1.25); POTASSIUM 4.1 mmol/L (3.4-5.0)
[2019-12-28 05:06] LABS: MAGNESIUM 0.9 mg/dL (1.6-2.3)
[2019-12-28 05:43] LABS: ARTERIAL BLD GAS O2 SATURATION 88.4 % (92-100); ARTERIAL BLD GAS TCO2 CT 14.2; ARTERIAL BLOOD GAS BASE EXCESS -10.9 (-2-2); ARTERIAL BLOOD GAS HCO3 13.4 meq/L (22-26); ARTERIAL BLOOD GAS PCO2 24.7 mmHg (35-45); ARTERIAL BLOOD GAS PO2 55.3 mmHg (80-100); ARTERIAL BLOOD GAS pH 7.35 (7.35-7.45)
[2019-12-28 06:55] LABS: BAND 24 % (0-10); BASOPHIL 1 % (0-2); EOSINOPHIL 5 % (0-4); LYMPHOCYTE 10 % (20.0-51.0); METAMYELOCYTE 1 % (0-0); MYELOCYTE 2 % (0-0); NEUTROPHILS 25 % (42.0-75.2); NUCLEATED RED BLOOD CELL 1 (0-6)
[2019-12-28 06:57] LABS: ANISOCYTOSIS 2+; PLATELET ESTIMATE DECREASED (NORMAL)
[2019-12-28 06:59] LABS: BURR CELLS 1+; SCHISTOCYTES 1+
--- NOTE | 2019-12-28 19:30 | NUR ---
Notified Dr. Nuñez of patient's hemoglobin of 7. Received orders to transfuse one unit of irradiated PRBCs and to follow up with [facility].
--- NOTE | 2019-12-28 20:40 | NUR ---
Notified [facility] of patient's urine output of 45mL since shift change at 1900. Patient is reporting increased work of breathing. She is tachypneic with labored breathing at rest. Awaiting further orders at this time. Notified [facility] at 2103 that ordered unit of irradiated PRBCs will not arrive until tomorrow morning.
--- NOTE | 2019-12-28 20:54 | NUR ---
Followed up with lab regarding ordered unit of irradiated PRBCs. Unit should arrive by tomorrow morning. Will continue to monitor.
--- NOTE | 2019-12-28 21:00 | NUR ---
Clarified DNR/DNI code status with patient and family. Patient does not wish to receive compressions or to be intubated.
--- NOTE | 2019-12-28 23:56 | NUR ---
Notified [facility] of patient's total urine output of 100mL since shift change at 1900. No orders received at this time. Will continue to monitor.
[2019-12-29] VITALS (834 sets, daily range): BP systolic 75–103; BP diastolic 52–83; PULSE 92–109; TEMP 97.1–98.1; O2SAT 63–100
[2019-12-29 04:27] LABS: MEAN CELL VOLUME 98 fl (80.0-100.0); MEAN CORPUSCULAR HGB CONC 33 g/dl (33.0-37.0); PLATELET COUNT 50 K/mm3 (130-400); REDCELL DISTRIBUTION WIDTH-CV 18.3 % (11.5-14.5)
[2019-12-29 04:32] LABS: HEMOGLOBIN 6.5 g/dl (12.5-16.0); MEAN CORPUSCULAR HEMOGLOBIN 33 pg (27.0-31.0)
[2019-12-29 04:33] LABS: HEMATOCRIT 19.5 % (37.0-47.0); INR 1.5 (0.8-3.0); PROTHROMBIN TIME 16.4 SECONDS (9.7-12.8)
[2019-12-29 04:37] LABS: ALBUMIN 2.1 gm/dL (3.5-5.0); BILIRUBIN,TOTAL 0.6 mg/dL (0.0-1.0); CALCIUM 7.4 mg/dL (8.4-10.2); CREATININE, serum 2.73 (0.52-1.25); MAGNESIUM 1.7 mg/dL (1.6-2.3); POTASSIUM 3.9 mmol/L (3.4-5.0); TOTAL PROTEIN 4.2 gm/dL (6.4-8.2)
--- NOTE | 2019-12-29 04:40 | NUR ---
Notified [facility] of patient's critical hemoglobin of 6.5 and total urine output of 150mL since shift change at 1900. Patient continues on levophed, now at 0.04 mcg/kg/min or 13.1 mL/hr; and vasopressin at 0.04 units/min or 12 mL/hr. Liter of sodium bicarb has just finished infusing at 0430, with LR resumed at 75 mL/hr. Patient exhibiting improved work of breathing. She states her breathing feels easier although her upper and lower extremities are still 1-2+ edematous. No orders received at this time. Will continue to monitor.
[2019-12-29 04:58] LABS: ARTERIAL BLOOD GAS PO2 77.6 mmHg (80-100); ARTERIAL BLOOD GAS pH 7.37 (7.35-7.45)
[2019-12-29 04:59] LABS: ARTERIAL BLD GAS O2 SATURATION 95.4 % (92-100); ARTERIAL BLD GAS TCO2 CT 16.1; ARTERIAL BLOOD GAS BASE EXCESS -9.1 (-2-2); ARTERIAL BLOOD GAS HCO3 15.3 meq/L (22-26); ARTERIAL BLOOD GAS PCO2 27.2 mmHg (35-45)
--- NOTE | 2019-12-29 05:32 | NUR ---
Notified Melia of patient's magnesium of 1.7; no orders to replace at this time.
[2019-12-29 05:37] LABS: BAND 24 % (0-10); EOSINOPHIL 1 % (0-4); LYMPHOCYTE 8 % (20.0-51.0); METAMYELOCYTE 5 % (0-0); NEUTROPHILS 53 % (42.0-75.2)
[2019-12-29 05:38] LABS: ANISOCYTOSIS 1+; HYPOCHROMIA 1+; PLATELET ESTIMATE DECREASED (NORMAL)
[2019-12-29 05:39] LABS: OVALOCYTES 1+; SCHISTOCYTES 1+
[2019-12-29 08:01] LABS: PATHOLOGY DIFF REVIEW OK
--- NOTE | 2019-12-29 09:53 | NUR ---
Telephone Technician attended clinical rounds with the team. The patient is on BiPAP. Brenda Alcaraz with finance contacted this SW regarding the patient's insurance application. Brenda to contact the patient's .
[2019-12-29 10:54] LABS: PRE ALBUMIN 7.9 mg/dL (17.6-36.0)
--- NOTE | 2019-12-29 14:25 | NUR ---
I talked with family this morning at bedside. They have been able to discuss a lot of Carey's wishes over the weekend and will have a chance to talk with Dr Bui at 4pm today regarding prognosis. Pt has been switched to DNR code status. Nausea and vomitting continue to be a problem. Pt did require bipap earlier today but is relieved to be off of it at least for a while. is waiting for social insurance adviser to present DPOA-HC paperwork so that this can be completed. Daughter is very supportive at bedside.
--- NOTE | 2019-12-29 16:27 | NUR ---
The patient was interested in completing advanced directives. Sanding Machine Tender provided Declaration and DPOA-HC form. SW and the patient's nurse witnessed. The patient designated her , Arnoldo and her daughter, Shelby. A copy was placed in the chart. The original and copies provided to the patient.
[2019-12-29 20:30] LABS: HEMATOCRIT 21.8 % (37.0-47.0); HEMOGLOBIN 7.5 g/dl (12.5-16.0)
[2019-12-29 20:33] LABS: URINE PROTEIN:CREAT RATIO 19.71 (0.00-0.14)
--- NOTE | 2019-12-29 21:08 | NUR ---
HEMOGLOBIN AT 7.5 AFTER 1 UNIT OF PRBC. AMANDA MENCHACA UPDATED. GILBERT NEW ORDERS GIVEN AT THIS TIME.
--- NOTE | 2019-12-29 21:14 | NUR ---
POTASSIUM AT 3.9, NO NEED FOR REPLACEMENT PER PREVIOUS NURSE THOMAS ORDRED BY .
[2019-12-30] VITALS (783 sets, daily range): BP systolic 86–102; BP diastolic 42–71; PULSE 99–114; TEMP 97.4–98.4; O2SAT 43–100
[2019-12-30 05:24] LABS: ARTERIAL BLOOD GAS BASE EXCESS -6.8 (-2-2); ARTERIAL BLOOD GAS HCO3 17.9 meq/L (22-26); ARTERIAL BLOOD GAS PCO2 32.5 mmHg (35-45); ARTERIAL BLOOD GAS PO2 73.4 mmHg (80-100); ARTERIAL BLOOD GAS pH 7.36 (7.35-7.45)
[2019-12-30 05:25] LABS: ARTERIAL BLD GAS O2 SATURATION 94.3 % (92-100)
[2019-12-30 05:27] LABS: MEAN CORPUSCULAR HGB CONC 35 g/dl (33.0-37.0); MEAN PLATELET VOLUME 13.2 fl (7.4-10.4); RED BLOOD COUNT 2.34 M/mm3 (4.10-5.30); REDCELL DISTRIBUTION WIDTH-CV 18.5 % (11.5-14.5)
[2019-12-30 05:31] LABS: INR 1.2 (0.8-3.0); PROTHROMBIN TIME 13.5 SECONDS (9.7-12.8)
[2019-12-30 05:34] LABS: HEMATOCRIT 21.7 % (37.0-47.0); HEMOGLOBIN 7.5 g/dl (12.5-16.0); MEAN CORPUSCULAR HEMOGLOBIN 32 pg (27.0-31.0)
[2019-12-30 05:37] LABS: ALBUMIN 2.1 gm/dL (3.5-5.0); BILIRUBIN,TOTAL 0.4 mg/dL (0.0-1.0); CALCIUM 7.8 mg/dL (8.4-10.2); CREATININE, serum 3.13 (0.52-1.25); MAGNESIUM 2.2 mg/dL (1.6-2.3); PHOSPHOROUS 2.3 mg/dL (2.5-4.5); PLATELET COUNT 24 K/mm3 (130-400); POTASSIUM 3.2 mmol/L (3.4-5.0); TOTAL PROTEIN 4.2 gm/dL (6.4-8.2)
[2019-12-30 05:39] LABS: MEAN CELL VOLUME 93 fl (80.0-100.0)
--- NOTE | 2019-12-30 05:39 | NUR ---
PT'S PLATELET DROPPED TO 24 TODAY. AMANDA MENCHACA NOTIFIED AND WANTS THIS RN TO CALL E-ICU AND CHECK WITH THEM. PT HAS NO COMPALINTS AT THIS TIME, VSS AND NO SIGNS OF BLEEDING. HEPARIN ON HOLD SINCE YESTERDAY.
--- NOTE | 2019-12-30 05:46 | NUR ---
CALLED [facility] AND SPOKE TO ADRIANE DOWLING DOCTOR WAS ON ANOTHER LINE. PLATELETS REPORTED. POTASSIUM IS LOW WELL AT 3.2 AND PHOS AT 2.3. CREATININE AND BUN ELEVATED THIS MORNING SO WILL WAIT FOR DAY SHIFT DOCTOR TO SEE IF THEY WANT POTASSIUM REPLACED AND [facility] NURSE AGREED WITH PLAN. AWAITING FOR ORDERS REGARDING PLATELETS AT THIS TIME.
[2019-12-30 06:14] LABS: BAND 11 % (0-10); LYMPHOCYTE 14 % (20.0-51.0); MYELOCYTE 1 % (0-0); NEUTROPHILS 70 % (42.0-75.2); NUCLEATED RED BLOOD CELL 1 (0-6)
[2019-12-30 06:17] LABS: PLATELET ESTIMATE DECREASED (NORMAL)
[2019-12-30 06:18] LABS: ANISOCYTOSIS 2+; SCHISTOCYTES 1+
[2019-12-30 06:19] LABS: OVALOCYTES 1+
--- NOTE | 2019-12-30 06:40 | NUR ---
DR. BIGGS CALLED BACK AND WILL START WORK-UP FPR POSSIBLE DIC, HIT AND TTPHUS. MD WILL PUT LAB ORDERS IN. THIS RN WILL PASS ALONG TO ONCOMING DAY SHIFT REGARDING PLAN.
--- NOTE | 2019-12-30 07:00 | NUR ---
RECEIVED REPORT FROM ADRIANE HUIZAR. PT SITTING UP IN BED PLAYING ON PHONE ON 3L VIA NC. VSS. TPN NOTED. FC PATENT AND DRAINING TO GRAVITY. CALL LIGHT WITHIN REACH.
[2019-12-30 07:29] LABS: MEAN CELL VOLUME 93 fl (80.0-100.0); MEAN CORPUSCULAR HGB CONC 35 g/dl (33.0-37.0); RED BLOOD COUNT 2.37 M/mm3 (4.10-5.30); REDCELL DISTRIBUTION WIDTH-CV 18.6 % (11.5-14.5)
--- NOTE | 2019-12-30 07:29 | NUR ---
REPORT GIVEN TO ADRIANE HINTON.
[2019-12-30 07:31] LABS: HEMOGLOBIN 7.6 g/dl (12.5-16.0); MEAN CORPUSCULAR HEMOGLOBIN 32 pg (27.0-31.0)
[2019-12-30 07:33] LABS: PLATELET COUNT 24 K/mm3 (130-400)
[2019-12-30 07:54] LABS: BAND 19 % (0-10); LYMPHOCYTE 13 % (20.0-51.0); METAMYELOCYTE 2 % (0-0); NEUTROPHILS 60 % (42.0-75.2); PLATELET ESTIMATE DECREASED (NORMAL)
--- NOTE | 2019-12-30 08:00 | NUR ---
UPDATED DR VELIZ ABOUT PTS LABS: K, PHOS, AND DDIMER. PHYSCIAIN MADE AWARE OF [facility]'S HIT WORKUP DONE, PHYSICIAN STATES IT IS OK TO GIVE ABX STILL AT THIS TIME. SPOKE TO DR VELIZ ABOUT UO, ECHO RESULTS, AND POSSIBEL TPN CHANGES. PHYSICIAN STATES TO SPEAK TO DR BALDWIN ABOUT TPN ADJUSTMENTS R/T ELECTROLYTES.
--- NOTE | 2019-12-30 08:20 | NUR ---
DR KATE'S NURSE ARABELLA,RN NOTIFIED OF ELECTROLYTES AND DR VELIZ'S TPN SUGGESTIONS. NURSE STATES HER FLIGHT RADIO OFFICER WILL NOTIFY DR BALDWIN.
--- NOTE | 2019-12-30 10:23 | NUR ---
Spoke with patient and her daughter this morning about their visit with Dr Bui. Pt reports that she felt they got more of their questions answered. From the conversation, she reports that she is going to take a month off chemotherapy to get over what is going on now and then they will talk more about chemotherapy as "she needs to keep taking chemotherapy". Pt does look better today and reports she is feeling a bit better. Still using mints and butterscotch to help with her taste sensations. Reports she ate hashbrowns this morning and they went down well. Support provided.
--- NOTE | 2019-12-30 11:07 | NUR ---
Recieved call from Dr Bui to report that there is very little left for treatment options from his perspective and he is encouraging pt to wait at least three weeks giving herself a chance to get stronger before they talk further about chemotherapy. He feels that palliative care referral is quite appropriate.
--- NOTE | 2019-12-30 11:15 | NUR ---
PT'S DAUGHTER CALLS RN TO BEDSIDE IN A PANIC. PT STATES SHE FELT LIKE SHE WAS GOING TO PASS OUT, HR NOTED TO BE 132 AND RR HIGH 20s. DAUGHTER STATES PT DID BECOME A LITTLE UNRESPONSIVE. SPOKE WITH MT AND CHECKED CLINICAL ACCESS, NOTED PT WAS ON VBIF AT 1101 AND APPEARS ICD SHOCKED HER BACK. DR VALENTE NOTIFIED AND COMES TO BEDSIDE TO CHECK WITH INTERROGATER TO FIND EPISODE. NEW ORDERS RECEIVED. DR VALENTE STATES HE WOULD LIKE PT TO RECEIVE NEXT PRBC.
--- NOTE | 2019-12-30 11:36 | NUR ---
DR ALFARO NOITIFIED FO VFIB INCIDENT AND DR VALENTE REQUEST FOR PRBC, NEW ORDER RECEIVED. BLOOD BANK NOTIFIED.
--- NOTE | 2019-12-30 12:03 | NUR ---
FAMILY AND PT STATES TO RN THAT THEY HAVE DECIDED THEY WANT TO GO HOME ON HOSPICE. PALLIATIVE CARE NURSE NOTIFIED.
--- NOTE | 2019-12-30 13:03 | NUR ---
Pt had a defibrilator firing and has also spoken to Dr Ho about her situation. At this point, She and her family have decided to go home with hospice services. They do want to get the unit of blood that was ordered for her, and it is infusing now. The defibulator was discussed and at this point the family would like to leave it on until they get home and are ready. I faxed information referral to Courtney at [facility] along with request for oxygen, wheelchair and commode for use at home. plans to take leave from his job to be home with his , along with support from their daughter. had already spoken with Courtney by phone at [facility] to set up their transition to hospice services tomorrow. They will plan to transport by private car with our staff helping her into the car and hospice staff there to help get her out of the car and settled in the house. This was also conveyed to Jamie, aids social worker.
--- NOTE | 2019-12-30 13:43 | NUR ---
Human Resources Admin staffed with Hue Lemus, Palliative Care Nurse regarding the patient's discharge. The patient and family have decided to go home with [facility] tomorrow, 12/30. Hue faxed referral to [facility]. The patient is needing oxygen, a wheelchair, and a bedside commode. [facility] is aware of these patient needs. The patient plans to be transported via private vehicle. TREVIN met with the patient's , Arnoldo to review the above discharge plan. He has been in contact with [facility] regarding the plan. [facility] staff will be at the home when the patient arrives to assist the patient out of the vehicle and into the home. Arnoldo plans to take leave from work to be home with the patient. TREVIN attempted to contact [facility] to review the above plan, left message. TREVIN collaborated the above information with the patient's nurse.
--- NOTE | 2019-12-30 13:45 | NUR ---
PT ASSISTED X2 BACK TO BED FROM RECLINER. PT NEEDS A LOT OF ASSISTANCE TO GET BACK INTO BED. PT STATES SHE FEELS VERY WEAK. POX NOTED TO BE 80% AFTER GETTING SETTLED INTO BED. INCREASED TO 6L VIA NC. RT NOTIFIED. WILL MONITOR PT AND MAKE ADJUSTMENTS.
--- NOTE | 2019-12-30 14:15 | NUR ---
RT AT BEDSIDE ADMINSTERING BREATHIGN TX. PT TURNED DOWN TO 4L VIA NC.
--- NOTE | 2019-12-30 14:23 | NUR ---
Comfort quilt provided to pt with explanation. Settling down and trying to nap soon. Family remains at bedside.
--- NOTE | 2019-12-30 14:56 | NUR ---
DR ALFARO AT BEDSIDE TO DISCUSS POC WITH PT AND FAMILY.
--- NOTE | 2019-12-30 14:59 | NUR ---
TREVIN ANDREA NOTIFIED OF DR ALFARO'S REQUEST OF [facility] AVAILABLE IN THE AREA TO ASSIST WITH HOME HSOPICE CARE.
--- NOTE | 2019-12-30 15:13 | NUR ---
DR BELL UPDATED ON PT AND POC.
--- NOTE | 2019-12-30 16:04 | NUR ---
Feed Mill Supervisor contacted [facility] with [facility] to review the discharge plan. They will admit the patient on Sunday, 12/30 at 1300 for hospice services. The patient needs to be picked up for transport at 12:30. TREVIN contacted [facility] regarding transport. Pawan with [facility] reports they can be meat pickler the patient at 12:30 on 12/30. SW met with the patient's and daughter to review the plan. They are in agreeance with the above plan. TREVIN collaborated the above information with the patient's nurse.
--- NOTE | 2019-12-30 16:13 | NUR ---
SPOKE TO DR ALFARO ABOUT TPN TO STOP AND CAN STOP FSBS, ADD ROXANOL AND KEEP IV MORPHINE AND MERRUM AT THIS TIME.
--- NOTE | 2019-12-30 19:15 | NUR ---
REPORT GIVEN TO ADRIANE VÁSQUEZ ONSURGICAL. PT TO TRANSFER TO 344. WITH PT. ALL PERSONAL BELONGINGS SENT WITH PT.
--- NOTE | 2019-12-30 19:45 | NUR ---
Arrived to surgical floor. Assessment complete. Lungs coarse throughout. Heart sounds normal. Bowels active x4. Pulses present throughout. Generalized edema +2. PICC to right upper and PAC to right chest flushed without complications. Denies pain at this time. Orientated to surgical floor. Would like bipap at bedside. Respiratory notified. Denies other needs at this time. at bedside.
--- NOTE | 2019-12-30 23:27 | NUR ---
Patient given PRN morphine at patient request for 6/10 pain. Denies other needs at this time.
--- NOTE | 2019-12-30 23:58 | NUR ---
Resting in bed. Denies needs. Call light in reach.
--- NOTE | 2019-12-31 02:04 | NUR ---
Resting in bed asleep. Call light in reach.
[2019-12-31 03:56] VITALS: BP 100/57; PULSE 107; TEMP 97.3
--- NOTE | 2019-12-31 04:12 | NUR ---
Reported 5/10 back pain. Provided with PRN morphine. Denies other needs at this time. Call light in reach.
--- NOTE | 2019-12-31 05:19 | NUR ---
Patient required x2 doses of morphine for pain control throughout night. Otherwise uneventful night. Resting in bed this AM. Call light in reach.
--- NOTE | 2019-12-31 07:07 | NUR ---
Report given to ADRIANE Gagnon
[2019-12-31 07:22] VITALS: BP 96/56; PULSE 104; TEMP 97.4
[2019-12-31] MEDS ORDERED: AYR SALINE MIST50 ML NS (08:33)
[2019-12-31] MEDS ORDERED: PACERONE400 MG PO (08:33)
[2019-12-31] MEDS ORDERED: TRANSDERM-0.5 MG/21 TD (08:34)
[2019-12-31] MEDS ORDERED: ZOFRAN ODT4 MG PO (08:34)
[2019-12-31] MEDS ORDERED: ATIVAN 1MG T1 MG/TAB PO (08:36)
[2019-12-31] MEDS ORDERED: ROXANOL 20MG20 MG/ML SL (08:36)
--- NOTE | 2019-12-31 10:01 | NUR ---
Pt has requested to have her defibulator device shut off at a later time, once she has been home for a while. Willie with [facility] reports that they can call [phone] and request this and then the hospice nurse can coordinate her visit with [facility] to do this. An order for "Turn off high power device and alerts" will be needed on the chart. This number will be passed on to the patient and her .
--- NOTE | 2019-12-31 10:54 | NUR ---
Patient to discharge home today on hospice services from [facility]. TREVIN Braswell set up transport with [facility] and they will olive picker at 1230. TREVIN contacted EMS to confirm olive picker time and to advise that patient moved from ICU to Surgical. TREVIN and ADRIANE Swann met with patient who states she is ready to get home. Patient's , Arnoldo is at bedside and reports they have a lot of family coming in to be with patient and provide support. Don provided signature on transfer consent form for EMS transport. TREVIN placed EMS forms in chart and provided copy to munitions factory worker once they were signed by ALICIA Gong. TREVIN contacted [facility] at [facility] and faxed discharge orders. [facility] advised that TREVIN Crowell from [facility] will arrive at patient's home around 1300 to complete intake paperwork with the family. TREVIN provided transport time to [facility].
[2019-12-31 12:00] VITALS: BP 98/60; PULSE 102; TEMP 97.4
--- NOTE | 2019-12-31 12:51 | NUR ---
Patient Health Summary, Discharge Summary, and Home Meds printed and reviewed with patient and . Stressed importance of follow up appointments. Belongings gathered by including phone, hotel recreational facilities manager and glasses. Patient transported via EMT stretcher to home to receive Hospice Care. She was seatbelted in ambulance. Patient and denied any questions.
== END 2019-12-31 12:50 | disposition hospice, home (50) | DRG 871 ==
LOC: COL.ER 17:39 → ICU 19:04 → COL.ER 19:04 → MEDICAL 19:04 → ICU 12-24 14:50 → MEDICAL 12-24 14:50 → ICU 12-24 14:50 → SURG 12-30 19:02
PROVIDERS: Emergency Medicine; Internal Medicine Nephrology; Internal Medicine Pulmonary Disease; Nurse Practitioner Family; Physician Assistant; Student in an Organized Health Care Education/Training Program; ADMIT Hospitalist
PROC: 02HV33Z Insertion of Infusion Device into Superior Vena Cava, Percutaneous Approach (ICD-10-PCS; principal; 2019-12-29)
DX: A41.51 Sepsis due to Escherichia coli [E. coli] (principal); J18.9 Pneumonia, unspecified organism; J96.01 Acute respiratory failure with hypoxia; R65.21 Severe sepsis with septic shock; N17.9 Acute kidney failure, unspecified; I42.9 Cardiomyopathy, unspecified; I47.2 Ventricular tachycardia; C79.51 Secondary malignant neoplasm of bone; E87.1 Hypo-osmolality and hyponatremia; E87.2 Acidosis; N39.0 Urinary tract infection, site not specified; D61.818 Other pancytopenia; E87.3 Alkalosis; I34.0 Nonrheumatic mitral (valve) insufficiency; E86.0 Dehydration; E83.42 Hypomagnesemia; N18.9 Chronic kidney disease, unspecified; I45.81 Long QT syndrome; I95.9 Hypotension, unspecified; C50.912 Malignant neoplasm of unspecified site of left female breast; D72.819 Decreased white blood cell count, unspecified; D64.9 Anemia, unspecified; I48.0 Paroxysmal atrial fibrillation; R53.81 Other malaise; Z95.810 Presence of automatic (implantable) cardiac defibrillator; Z88.0 Allergy status to penicillin
CPT/HCPCS: 99223-AI; 99233-AI; 99239; A4314; A9284; C1751; C1892; C9113; J0282; J0456; J0610; J1644; J1720; J1940; J1956; J2185; J2270; J2405; J2550; J3370; J3475; J7030; J7040; J7050; J7060; J7120; J7131; P9040